=== PATIENT | male | born 1955 | race Caucasian/White ===

== ENCOUNTER 2017-01-27 22:07 | Emergency (ER) | payer SELFPAY ==
[2017-01-27] MEDS ORDERED: valACYclovir Tab 500 MG TAB PO ONE (22:58)
[2017-01-27] MEDS ORDERED: predniSONE Tab 20 MG TAB PO ONE (22:58)
[2017-01-27] MEDS ORDERED: Amoxicill/Clav 875/125mg Tab 1 TAB TAB PO ONE (22:58)
--- NOTE | 2017-01-27 23:17 | PDOC ---
General Adult HPI - General Chief Complaint: General Medical Stated Complaint: "possible stroke" Date Seen by Provider: 01/27/17 Time Seen by Provider: 22:35 - History of Present Illness Initial Comment: Patient started to have some left-sided ear symptoms that was a bit of ringing of feeling of fullness also some disequilibrium and has started to develop left- sided facial paralysis. This facial paralysis does include the facial muscles of the for head and eyes as well as the remainder of the face. He has no upper extremity weakness no difficulty with speech no other signs of neurologic deficit or issue. He is diabetic he's never had blood pressure issues does not believe he's had cholesterol issues at all. He has never had stroke or CVA or dysrhythmia or any other neurologic problems previously. Have you received a tetanus shot in the past 10 years?: Unknown - Patient Home Medications Home Medications: Home Medications Amox Tr/Potassium Clavulanate [Augmentin 875-125 Tablet] 1 each PO BID #14 tablet 01/27/17 Gabapentin [Neurontin] 300 mg PO TID 01/27/17 Glipizide 5 mg PO DAILY 01/27/17 Metformin HCl 1,000 mg PO DAILY 01/27/17 Prednisone 60 mg PO DAILY #21 tab 01/27/17 Valacyclovir HCl [Valacyclovir] 1,000 mg PO TID #21 tab 01/27/17 Zolpidem Tartrate [Ambien] 5 mg PO BEDTIME 01/27/17 - Patient Allergies Allergies/Adverse Reactions: Allergies Allergy/AdvReac Type Severity Reaction Status Date / Time No Known Allergies Allergy Verified 01/27/17 22:41 ROS - Limitations ROS Limitations: No Limitations Constitution: REPORTS: Denies Symptoms. DENIES: Chills, Fever Cardiovascular: REPORTS: Denies Cardiac Symptoms Respiratory: REPORTS: Denies Resp Symptoms General Adult Exam - General Appearance General Appearance: POSITIVE: Alert, Cooperative, No Acute Distress - HEENT HEENT: POSITIVE: Other (Patient has inability to close his eye wrinkle his forehead smiles or have any facial movement left side of his face. He has some swelling in the left external auditory canal with poor visualization of the left tympanic membrane right tympanic membranes benign. Oropharynx and throat are benign.) - Respiratory Respiratory: POSITIVE: No Respiratory Distress - Cardiovascular Cardiovascular: POSITIVE: Regular Rate & Rhythm - Abdomen Abdomen: Soft: (All Quadrants), Normal Bowel Sounds: (All Quadrants), Denies Tenderness: (All Quadrants) - Neurological / Psychological Neurological: POSITIVE: Other (As above left-sided facial droop and including iron for head) General Adult Progress - Patient's Progress MDM / ED Course: A long discussion with this patient regarding was likely Valdez's palsy for him. Started with some ear symptoms form could've been brought on by otitis media I can't see his eardrum well. I am going treat him for otitis media with Augmentin 875 one by mouth twice a day for 7 days of asked him to be reevaluated by his primary care physician who hopefully can see is from at that point. This also is closely related to herpes infection therefore I am going to cover him with Valtrex also based on advice from up-to-date also 60 mg a steroid 3 times a day is advisable as well. All these are prescribed for the patient. He's never follow-up with his primary care doctor in the near future. If he has any weakness in his upper extremities lower extremities speech difficulties or any new or different findings is Dot presents to the emergency department right away. Patient Care Time - Estimated PCT Patient Care Time (In Minutes): 35 Vital Signs - VS Reviewed Vital Signs Reviewed: Yes (all benign) Discharge Clinical Impression: Valdez's palsy Discharge Disposition: Discharged to Home Condition: Stable Prescriptions / Orders: Amox Tr/Potassium Clavulanate [Augmentin 875-125 Tablet] 1 each PO BID #14 tablet Prednisone 60 mg PO DAILY #21 tab Valacyclovir HCl [Valacyclovir] 1,000 mg PO TID #21 tab Patient Instructions Given at Discharge: Valdez Palsy (ED) Additional Instructions: Take Augmentin 875 one by mouth twice a day for 7 days Take prednisone 60 mg daily for 7 days Take valacyclovir 1000 mg 3 times a day for 7 days Follow-up with your primary care provider in the next couple of days for reevaluation and close monitoring Use saline eyedrops or patch URI to avoid corneal dryness. If your I continues to bother you do not hesitate to see your engraving press operator or art critic for further recommendations Follow Up With: NONE,NONE [NON-STAFF] -
[2017-01-28 00:09] VITALS: RESP 18; TEMP 97.5
== END 2017-01-27 23:32 | disposition home or self-care (01) ==
LOC: ER 22:07
DX: G51.0 Bell's palsy (principal); R29.810 Facial weakness
CPT/HCPCS: 99282 ×2; J7512

== ENCOUNTER → 2017-02-05 | Outpatient (CLI) | payer OTHER ==
--- NOTE | 2017-02-05 14:29 | DI ---
MRI BRAIN SCAN WITHOUT AND WITH IV CONTRAST, 02/05/2017 1:14 PM: Clinical History: Valdez's palsy. Previous Exam: None at this facility. Sequences: Axial and sagittal T1 pre contrast and axial and coronal post contrast; axial T2 and FLAIR . Diffusion weighted images with ADC mapping are also performed. Sagittal scans postcontrast were obt ained through the left half of the brain. Contrast Dose: 17 mL of ProHance (279.3 mg/mL) was injected IV. The 4th, 3rd, and lateral ventricles are of normal size, shape, position, and contour for this patien t's age. There is a 5 mm fluid collection with the same signal intensity as CSF located in the left b chris ganglia consistent with an old lacunar infarct. There is no evidence of an acute bland or hemorr hagic infarct. There are multiple punctate periventricular white matter hyperintensities bilaterally that extend into the watershed territory, consistent with small vessel ischemic disease. This amount of ischemic disease is slightly advanced for the patient's age. There are no abnormal enhancing lesio ns. No cerebellar pontine angle mass is seen. There is no obvious abnormality of the left or right se venth nerve through its course from the brainstem through the petrous pyramids and into the soft tiss ues of the facial region. Diffusion-weighted imaging with ADC mapping is otherwise normal. There are no extracerebral mantels or shift of the midline structures. The paranasal sinuses are normal. Readin. There is no cerebellar pontine angle mass. No abnormal lesion is identified in the course of eith er seventh or eighth nerve from the brainstem through the petrous pyramids and then for the seventh n erve through the soft tissues of the face on either side. 2. 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 3. Small vessel ischemic disease, slightly advanced for the patient's stated age of 61 years.
== END ==
LOC: MRI 13:10
PROVIDERS: ATTEND Family Medicine
DX: G51.0 Bell's palsy (principal); I99.8 Other disorder of circulatory system
CPT/HCPCS: 70553